=== PATIENT | female | born 1980 | race Caucasian/White ===

== ENCOUNTER 2024-05-19 08:57 | Emergency (ER) | payer SELFPAY ==
[~2024-05-19] VITALS: Ht 154.9 cm; Wt 96.0 kg
[2024-05-19 09:00] VITALS: O2SAT 99
[2024-05-19 09:25] LABS: BASOPHILS % 0.3 % (0.0-2.0); EOSINOPHILS % 2.5 % (0.0-5.0); HEMATOCRIT. 35.3 % (36.0-48.0); HEMOGLOBIN. 11.3 g/dL (12.0-16.0); LYMPHOCYTES % 14.1 % (20.0-50.0); MEAN CORPUSCULAR HEMOGLOBIN 26.2 pg (28.0-32.0); MEAN CORPUSCULAR VOLUME 81.9 fL (81.0-99.0); MEAN PLATELET VOLUME 7.3 fl (7.4-10.4); MONOCYTES % 3.3 % (2.0-8.0); NEUTROPHILS % 79.8 % (40.0-76.0); PLATELET 428 x1000/uL (130-400); RED BLOOD CELL COUNT 4.32 mill/uL (4.2-5.4); RED CELL DISTRIBUTION WIDTH 15.1 % (11.6-14.6); WHITE BLOOD COUNT 12.3 x1000/uL (4.5-11.0)
[2024-05-19 09:29] LABS: CLARITY URINE CLOUDY (CLEAR); COLOR URINE ORANGE (YELLOW); GLUCOSE URINE NEGATIVE (NEGATIVE); KETONES URINE NEGATIVE (NEGATIVE); LEUKOCYTE ESTERASE URINE NEGATIVE (NEGATIVE); NITRITE URINE NEGATIVE (NEGATIVE); OCCULT BLOOD URINE 3+ (NEGATIVE); PH URINE 5.5 (4.5-8.0); PROTEIN URINE 1+ (NEGATIVE); SPECIFIC GRAVITY URINE 1.023 (1.005-1.030); UROBILINOGEN URINE 0.2 E.U./dL (0.2-1.0)
[2024-05-19] MEDS: ONDANSETRON 4MG ODT PO ONE (09:31)
[2024-05-19] MEDS: MECLIZINE 25MG TABLET PO ONE (09:31)
[2024-05-19 09:32] LABS: CHLORIDE 103 mEq/L (98-107); POTASSIUM 3.3 mEq/L (3.5-5.1); SODIUM 137 mEq/L (136-145)
[2024-05-19 09:33] LABS: CALCIUM 9.3 mg/dL (8.7-10.4); CARBON DIOXIDE 27 mEq/L (21-32)
[2024-05-19 09:38] LABS: CREATININE 0.7 mg/dL (0.6-1.0); GLUCOSE 146 mg/dL (70-105); UREA NITROGEN BLOOD 12 mg/dL (9-23)
[2024-05-19 09:39] LABS: TROPONIN I HIGH SENSITIVITY 4 ng/L (3.0-34)
[2024-05-19 09:40] LABS: ALANINE AMINOTRANSFERASE 13 IU/L (10-49); ALBUMIN 4.8 g/dL (3.2-4.8); ASPARTATE AMINOTRANSFERASE 13 IU/L (<34); BILIRUBIN DIRECT 0.2 mg/dL (<=3.0); BILIRUBIN TOTAL 0.5 mg/dL (0.1-1.0); PROTEIN TOTAL 7.8 g/dL (6.0-8.3)
[2024-05-19 09:47] LABS: BACTERIA URINE 1+; RBC URINE TNTC /hpf (0-2); SQUAMOUS EPITHELIAL CELL URINE 1+ /lpf (RARE/1+); WBC URINE 0-2 /hpf (0-2); YEAST URINE NONE SEEN
[2024-05-19 09:48] LABS: HCG SCREEN NEGATIVE
[2024-05-19] MEDS ORDERED: MECL-299 MT (10:56)
[2024-05-19 11:06] VITALS: BP 164/70; PULSE 52; RESP 14; TEMP 36.94740; O2SAT 99
== END 2024-05-19 11:20 | disposition home or self-care (01) ==
LOC: ER 09:53
DX: R42 Dizziness and giddiness (principal)
CPT/HCPCS: 99283; 80076; 80048; 81003; 84703; 83690; 85025; 84484; 36415; J8597; Q0162